=== PATIENT | female | born 2000 | race Caucasian/White ===

== ENCOUNTER 2021-08-25 10:59 | Emergency (ER) | payer OTHER ==
[2021-08-25] MEDS ORDERED: ACETAMINOPHEN TAB 500 MG TAB PO STA (12:43)
[2021-08-25] MEDS ORDERED: SODIUM CHLORIDE 0.9% 1,000 ML IV STA (12:47)
[2021-08-25 13:17] LABS: Basophils % (A) 0 %; Eosinophils % (A) 0 %; HCT 37.2 % (34.0-46.0); HGB 12.7 gm/dL (11.4-16.0); Lymphocytes # (A) 0.6 k/uL (1.0-4.8); Lymphocytes % (A) 3 %; MCH 32.9 pg (25.0-35.0); MCHC 34.1 g/dL (31.0-37.0); MCV 96.4 fL (80.0-100.0); Mean Platelet Volume 6.5; Monocytes # (A) 0.5 k/uL (0-1.0); Monocytes % (A) 2 %; Neutrophils # (A) 19.6 k/uL (1.3-7.7); Neutrophils % (A) 94 %; Platelet Count 291 k/uL (150-450); RBC 3.86 m/uL (3.80-5.40); RDW 11.7 % (11.5-15.5); WBC 20.9 k/uL (3.8-10.6)
[2021-08-25 13:42] LABS: ALT 13 U/L (4-34); AST 21 U/L (14-36); African American GFR (CKD) >90 (>60 ml/min/1.73 sqM); Albumin 4.1 g/dL (3.5-5.0); Alkaline Phosphatase 84 U/L (38-126); Anion Gap 8 mmol/L; Blood Urea Nitrogen 14 mg/dL (7-17); Calcium 9.5 mg/dL (8.4-10.2); Carbon Dioxide 23 mmol/L (22-30); Chloride 102 mmol/L (98-107); Glucose 109 mg/dL (74-99); Non-African American GFR(CKD) >90 (>60 ml/min/1.73 sqM); Potassium 3.8 mmol/L (3.5-5.1); Sodium 133 mmol/L (137-145); Total Bilirubin 0.9 mg/dL (0.2-1.3); Total Protein 7.2 g/dL (6.3-8.2)
[2021-08-25 13:48] LABS: Appearance,Urine Cloudy (Clear); Bacteria,Urine Few /hpf; Bilirubin,Urine Negative (Negative); Blood,Urine Large (Negative); Color,Urine Yellow; Glucose,Urine (UA) Negative (Negative); Ketones,Urine 1+ (Negative); Leukocyte Esterase,Urine Large (Negative); Mucus,Urine Many /hpf; Nitrite,Urine Negative (Negative); PH, Urine 6.5 (5.0-8.0); Protein,Urine 2+ (Negative); RBC,Urine 10 /hpf (0-5); Specific Gravity,Urine 1.034 (1.001-1.035); Squamous Epithelial Cell,Urine 14 /hpf (0-4); WBC,Urine 161 /hpf (0-5)
--- NOTE | 2021-08-25 13:58 | CT ---
EXAMINATION TYPE: CT abdomen pelvis w con DATE OF EXAM: 08/25/2021 HISTORY: Pelvic pain, vaginal bleeding CT DLP: 408.4mGycm Automated Exposure Control for Dose Reduction was Utilized. CONTRAST: CT scan of the abdomen and pelvis is performed without oral but with IV Contrast, patient injected wi th 100 mL of Isovue 300. COMPARISON: None. FINDINGS: LUNG BASES: No significant abnormality is appreciated. LIVER/GB: No significant abnormality is appreciated. PANCREAS: No significant abnormality is seen. SPLEEN: No significant abnormality is seen. ADRENALS: No significant abnormality is seen. KIDNEYS: No significant abnormality is seen. BOWEL: Suboptimal evaluation without enteric contrast and patient having little intra-abdominal fat. Low-lying cecum into the right pelvis is present. No suspicious small or large bowel dilatation. Some fluid in the cecum is noted. UTERUS/ADNEXA: Anteverted uterus. Symmetric normal-size ovaries axial image 65. No free fluid. LYMPH NODES: No greater than 1cm abdominal or pelvic lymph nodes are appreciated. OSSEOUS STRUCTURES: No significant abnormality is seen. OTHER: No significant additional abnormality is seen. IMPRESSION: Source of pelvic pain and vaginal bleeding not identified. Low-lying cecum with intralumi nal fluid could reflect product of diarrhea and/or mild uncomplicated colitis. Correlate clinically. Otherwise unremarkable study.
[2021-08-25] MEDS ORDERED: cefTRIAXone IN SWFI 1,000 MG/10 ML SYRINGE IVP STA (14:05)
--- NOTE | 2021-08-25 14:16 | ED ---
General Adult HPI - General Chief complaint: Abdominal Pain Stated complaint: Female Time Seen by Provider: 08/25/21 12:09 Source: patient Mode of arrival: wheelchair Limitations: no limitations - History of Present Illness Initial comments: 21-year-old female presents to the emergency room for a chief complaint of abdominal pain. Patient has had lower abdominal pain for the pastday or so. Patient states that she does have some dysuria. Denies flank pain. Has had chills on and off. Has not had Motrin or Tylenol today. No nausea vomiting. P atient denies vaginal discharge but does admit to vaginal bleeding. States it is light in nature. Patient does admit to possibility of STDs. denies any abdominal surgeries in the past.Patient has no other complaints at this time including shortness of breath, chest pain, nausea or vomiting, headache, or visual changes. - Related Data Previous Rx's Medication Instructions Recorded Doxycycline [Vibramycin] 100 mg PO BID 14 Days #28 capsule 08/25/21 Sulfamethox-Tmp 800-160Mg [Bactrim 1 tab PO Q12HR #28 tab 08/25/21 DS 800-160 mg] Allergies Allergy/AdvReac Type Severity Reaction Status Date / Time No Known Allergies Allergy Verified 08/25/21 14:26 Review of Systems ROS Statement: Those systems with pertinent positive or pertinent negative responses have been documented in the HPI. ROS Other: All systems not noted in ROS Statement are negative. Past Medical History Past Medical History: No Reported History History of Any Multi-Drug Resistant Organisms: None Reported Past Surgical History: No Surgical Hx Reported Past Psychological History: Anxiety Smoking Status: Current every day smoker Past Alcohol Use History: Occasional Past Drug Use History: Marijuana General Exam Limitations: no limitations General appearance: alert, in no apparent distress Head exam: Present: atraumatic Eye exam: Present: normal appearance, PERRL, EOMI. Absent: scleral icterus, conjunctival injection ENT exam: Present: normal exam, mucous membranes moist Neck exam: Present: normal inspection, full ROM. Absent: tenderness Respiratory exam: Present: normal lung sounds bilaterally. Absent: respiratory distress, wheezes Cardiovascular Exam: Present: regular rate, normal rhythm, normal heart sounds GI/Abdominal exam: Present: soft, tenderness (lower abdominal tenderness), normal bowel sounds. Absent: distended, guarding, rebound External exam: Present: normal external exam. Absent: erythema, swelling, lesions, lacerations, ecchymosis Speculum exam: Present: normal speculum exam, vaginal bleeding (mild, with some discharge). Absent: erythema, vaginal discharge, cervical discharge, foreign body, tissue, laceration By manual exam: Present: cervical motion tenderness, adnexal tenderness, uterine tenderness Course Vital Signs 08/25/21 08/25/21 11:54 14:18 Temperature 101.1 F H 99.3 F Pulse Rate 107 H 104 H Respiratory 20 16 Rate Blood Pressure 92/51 97/61 O2 Sat by Pulse 99 100 Oximetry Medical Decision Making - Medical Decision Making Vitals are stable. Patient does have a fever. Physical exam doesn't reveal a tender abdomen. Pelvic exam reveals mild vaginal bleeding with some discharge. Cervical motion tenderness noted as well as adnexal tenderness. Daniella RODRIGUEZ present as fruit rancher. CBC does show leukocytosis with a left shift. CMP unremarkable. Urinalysis does show significant white blood cells. Trichomoniasis is negative. CT abdomen and pelvis does not explain pelvic pain. at this time I am concerned for PID. Patient was given a gram of Rocephin here in the emergency room and started on doxycycline which she will continue for 14 days. We will also treat her urinary tract infection. She does not have any CVA tenderness. cpatient will follow-up with OB with whom she is established. She will return here for any worsening symptoms.strict return parameters were discussed case was discussed with Dr. Kenny - Lab Data Result diagrams: 08/25/21 12:55 08/25/21 12:55 Lab Results 08/25/21 08/25/21 08/25/21 Range/Units 12:55 12:55 12:55 WBC 20.9 H (3.8-10.6) k/uL RBC 3.86 (3.80-5.40) m/uL Hgb 12.7 (11.4-16.0) gm/dL Hct 37.2 (34.0-46.0) % MCV 96.4 (80.0-100.0) fL MCH 32.9 (25.0-35.0) pg MCHC 34.1 (31.0-37.0) g/dL RDW 11.7 (11.5-15.5) % Plt Count 291 (150-450) k/uL MPV 6.5 Neutrophils % 94 % Lymphocytes % 3 % Monocytes % 2 % Eosinophils % 0 % Basophils % 0 % Neutrophils # 19.6 H (1.3-7.7) k/uL Lymphocytes # 0.6 L (1.0-4.8) k/uL Monocytes # 0.5 (0-1.0) k/uL Eosinophils # 0.0 (0-0.7) k/uL Basophils # 0.0 (0-0.2) k/uL Sodium 133 L (137-145) mmol/L Potassium 3.8 (3.5-5.1) mmol/L Chloride 102 (98-107) mmol/L Carbon Dioxide 23 (22-30) mmol/L Anion Gap 8 mmol/L BUN 14 (7-17) mg/dL Creatinine 0.55 (0.52-1.04) mg/dL Est GFR (CKD-EPI)AfAm >90 (>60 ml/min/1.73 sqM) Est GFR (CKD-EPI)NonAf >90 (>60 ml/min/1.73 sqM) Glucose 109 H (74-99) mg/dL Plasma Lactic Acid Brian (0.7-2.0) mmol/L Calcium 9.5 (8.4-10.2) mg/dL Total Bilirubin 0.9 (0.2-1.3) mg/dL AST 21 (14-36) U/L ALT 13 (4-34) U/L Alkaline Phosphatase 84 (38-126) U/L Total Protein 7.2 (6.3-8.2) g/dL Albumin 4.1 (3.5-5.0) g/dL Urine Color Yellow Urine Appearance Cloudy H (Clear) Urine pH 6.5 (5.0-8.0) Ur Specific [place] 1.034 (1.001-1.035) Urine Protein 2+ H (Negative) Urine Glucose (UA) Negative (Negative) Urine Ketones 1+ H (Negative) Urine Blood Large H (Negative) Urine Nitrite Negative (Negative) Urine Bilirubin Negative (Negative) Urine Urobilinogen 3.0 (<2.0) mg/dL Ur Leukocyte Esterase Large H (Negative) Urine RBC 10 H (0-5) /hpf Urine WBC 161 H (0-5) /hpf Urine WBC Clumps Few H (None) /hpf Ur Squamous Epith Cells 14 H (0-4) /hpf Urine Bacteria Few H (None) /hpf Urine Mucus Many H (None) /hpf Urine HCG, Qual (Not Detectd) Trichomonas Ag (Rapid) (Negative) 08/25/21 08/25/21 08/25/21 Range/Units 12:55 12:55 13:12 WBC (3.8-10.6) k/uL RBC (3.80-5.40) m/uL Hgb (11.4-16.0) gm/dL Hct (34.0-46.0) % MCV (80.0-100.0) fL MCH (25.0-35.0) pg MCHC (31.0-37.0) g/dL RDW (11.5-15.5) % Plt Count (150-450) k/uL MPV Neutrophils % % Lymphocytes % % Monocytes % % Eosinophils % % Basophils % % Neutrophils # (1.3-7.7) k/uL Lymphocytes # (1.0-4.8) k/uL Monocytes # (0-1.0) k/uL Eosinophils # (0-0.7) k/uL Basophils # (0-0.2) k/uL Sodium (137-145) mmol/L Potassium (3.5-5.1) mmol/L Chloride (98-107) mmol/L Carbon Dioxide (22-30) mmol/L Anion Gap mmol/L BUN (7-17) mg/dL Creatinine (0.52-1.04) mg/dL Est GFR (CKD-EPI)AfAm (>60 ml/min/1.73 sqM) Est GFR (CKD-EPI)NonAf (>60 ml/min/1.73 sqM) Glucose (74-99) mg/dL Plasma Lactic Acid Brian 0.9 (0.7-2.0) mmol/L Calcium (8.4-10.2) mg/dL Total Bilirubin (0.2-1.3) mg/dL AST (14-36) U/L ALT (4-34) U/L Alkaline Phosphatase (38-126) U/L Total Protein (6.3-8.2) g/dL Albumin (3.5-5.0) g/dL Urine Color Urine Appearance (Clear) Urine pH (5.0-8.0) Ur Specific [place] (1.001-1.035) Urine Protein (Negative) Urine Glucose (UA) (Negative) Urine Ketones (Negative) Urine Blood (Negative) Urine Nitrite (Negative) Urine Bilirubin (Negative) Urine Urobilinogen (<2.0) mg/dL Ur Leukocyte Esterase (Negative) Urine RBC (0-5) /hpf Urine WBC (0-5) /hpf Urine WBC Clumps (None) /hpf Ur Squamous Epith Cells (0-4) /hpf Urine Bacteria (None) /hpf Urine Mucus (None) /hpf Urine HCG, Qual Not Detected (Not Detectd) Trichomonas Ag (Rapid) Negative (Negative) Disposition Clinical Impression: Abdominal pain, UTI (urinary tract infection) Narrative: possible pelvic inflammatory disease Disposition: HOME SELF-CARE Condition: Good Instructions (If sedation given, give patient instructions): Pelvic Inflammatory Disease (ED), Abdominal Pain (ED) Additional Instructions: Follow-up with primary care and OB this week. Take antibiotic as directed. Take Motrin and Tylenol for pain and fever. Return to the emergency room for any worsening symptoms. Prescriptions: Sulfamethox-Tmp 800-160Mg [Bactrim DS 800-160 mg] 1 tab PO Q12HR #28 tab Doxycycline [Vibramycin] 100 mg PO BID 14 Days #28 capsule Is patient prescribed a controlled substance at d/c from ED?: No Referrals: Richard Yost DO [Primary Care Provider] - 1-2 days Susy Alexander DO [Doctor of Osteopathic Medicine] - 1-2 days Time of Disposition: 14:38
[2021-08-25 14:25] VITALS: BP 97/61; PULSE 104; RESP 16; TEMP 99.3
[2021-08-25] MEDS ORDERED: DOXYCYCLINE 100 MG CAP PO STA (14:33)
[2021-08-25] MEDS ORDERED: ACET/COD 300 MG/30 MG STARTER PACK 6 TAB BTL PO STA (14:39)
== END 2021-08-25 14:58 | disposition home or self-care (01) ==
LOC: EC 10:59
DX: N39.0 Urinary tract infection, site not specified (principal); F17.200 Nicotine dependence, unspecified, uncomplicated
CPT/HCPCS: 36415; 80053; 83605; 85025; 81001; 81025; 87040; 87808; 87491; 87591; 87070; 87086; 74177; 99284; 96374; 96361; J0696; Q9967

== ENCOUNTER 2022-04-07 16:19 | Emergency (ER) | payer OTHER ==
[2022-04-07] MEDS ORDERED: ACETAMINOPHEN TAB 325 MG TAB PO STA (16:45)
[2022-04-07] MEDS ORDERED: SODIUM CHLORIDE 0.9% 1,000 ML IV ONE (17:00)
--- NOTE | 2022-04-07 17:07 | ED ---
General Adult HPI - General Chief complaint: Fever Stated complaint: Tachycardia Time Seen by Provider: 04/07/22 16:50 Source: patient, family, RN notes reviewed, old records reviewed Mode of arrival: ambulatory Limitations: no limitations - History of Present Illness Initial comments: This is a well-appearing 22-year-old female who presents with complaints of fever, low back pain, nausea and vomiting that started Monday. Patient states that she is 13 weeks . Denies any abdominal pain, vaginal bleeding or dysuria. She states that her symptoms started on Monday wtih fever, chills and vomiting. She states that yesterday she had an episode of vomiting. She went to urgent care today for evaluation and they recommended she come to the emergency room after urinalysis revealed 3+ ketones, with no evidence of UTI. She states she did take Tylenol this morning and her low back pain and nausea have resolved at this time. She is a with history of . Denies any other medical history. Denies smoking, alcohol or any drug use. -: days(s) (3) Location: back Radiation: non-radiation Consistency: now resolved Improves with: medication (tylenol) Associated Symptoms: fever/chills, nausea/vomiting Treatments Prior to Arrival: other (urgent care) - Related Data Previous Rx's Medication Instructions Recorded Cephalexin [Keflex] 500 mg PO Q6HR 7 Days #28 cap 04/07/22 Allergies Allergy/AdvReac Type Severity Reaction Status Date / Time No Known Allergies Allergy Verified 04/07/22 17:39 Review of Systems ROS Statement: Those systems with pertinent positive or pertinent negative responses have been documented in the HPI. ROS Other: All systems not noted in ROS Statement are negative. Past Medical History Past Medical History: No Reported History History of Any Multi-Drug Resistant Organisms: None Reported Past Surgical History: No Surgical Hx Reported Past Psychological History: Anxiety Smoking Status: Current every day smoker Past Alcohol Use History: Occasional Past Drug Use History: None Reported General Exam Limitations: no limitations General appearance: alert, in no apparent distress Head exam: Present: atraumatic, normocephalic Eye exam: Present: normal appearance. Absent: scleral icterus, conjunctival injection ENT exam: Present: mucous membranes moist Neck exam: Present: normal inspection. Absent: tenderness, meningismus Respiratory exam: Present: normal lung sounds bilaterally. Absent: respiratory distress, accessory muscle use Cardiovascular Exam: Present: tachycardia, normal heart sounds GI/Abdominal exam: Present: soft. Absent: distended, tenderness Extremities exam: Present: normal capillary refill Back exam: Present: normal inspection, full ROM. Absent: tenderness, CVA tend erness (R), CVA tenderness (L), rash noted Neurological exam: Present: alert, oriented X3 Psychiatric exam: Present: normal affect, normal mood Skin exam: Present: warm, dry, intact, normal color, other (Minimal dry flaky skin upper mid back from recent sunburn). Absent: rash, cyanosis, diaphoretic Course Vital Signs 04/07/22 04/07/22 04/07/22 16:33 18:26 18:45 Temperature 99.6 F 99.4 F Pulse Rate 120 H 113 H 111 H Respiratory 20 18 18 Rate Blood Pressure 105/66 107/84 O2 Sat by Pulse 100 99 96 Oximetry EKG Findings - EKG Results: EKG: sinus rhythm EKG shows: tachycardia (Ventricular rate of 109, GA interval 0.105, QRS 0.72, QTC 0.339) Medical Decision Making - Medical Decision Making Blood work shows no evidence of leukocytosis. Hemoglobin and hematocrit are stable. Covid and influenza swabs are negative. Patient sodium level is 130, likely from dehydration. She was given IV fluid bolus. UA shows cloudy urine with 8 white blood cells and occasional bacteria. Patient has no flank pain on exam. She was given a prescription for Keflex and instructed to follow-up with her primary care doctor next week for reevaluation. She was directed to return to the emergency room with any new or concerning symptoms especially vaginal bleeding or persistent nausea vomiting. She was given a prescription for Zofran for nausea, encouraged to increase her fluid intake. 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 Patient and significant other are agreeable to this plan of care. Case discussed with Dr. Rodriguez. - Lab Data Result diagrams: 04/07/22 17:39 04/07/22 17:39 Lab Results 04/07/22 04/07/22 04/07/22 Range/Units 17:22 17: 17:39 WBC (3.8-10.6) k/uL RBC (3.80-5.40) m/uL Hgb (11.4-16.0) gm/dL Hct (34.0-46.0) % MCV (80.0-100.0) fL MCH (25.0-35.0) pg MCHC (31.0-37.0) g/dL RDW (11.5-15.5) % Plt Count (150-450) k/uL MPV Neutrophils % % Lymphocytes % % Monocytes % % Eosinophils % % Basophils % % Neutrophils # (1.3-7.7) k/uL Lymphocytes # (1.0-4.8) k/uL Monocytes # (0-1.0) k/uL Eosinophils # (0-0.7) k/uL Basophils # (0-0.2) k/uL Sodium (137-145) mmol/L Potassium (3.5-5.1) mmol/L Chloride (98-107) mmol/L Carbon Dioxide (22-30) mmol/L Anion Gap mmol/L BUN (7-17) mg/dL Creatinine (0.52-1.04) mg/dL Est GFR (CKD-EPI)AfAm (>60 ml/min/1.73 sqM) Est GFR (CKD-EPI)NonAf (>60 ml/min/1.73 sqM) Glucose (74-99) mg/dL Calcium (8.4-10.2) mg/dL Total Bilirubin (0.2-1.3) mg/dL AST (14-36) U/L ALT (4-34) U/L Alkaline Phosphatase (38-126) U/L Total Protein (6.3-8.2) g/dL Albumin (3.5-5.0) g/dL Urine Color Light Yellow Urine Appearance Cloudy H (Clear) Urine pH 6.5 (5.0-8.0) Ur Specific [place] 1.006 (1.001-1.035) Urine Protein Trace H (Negative) Urine Glucose (UA) Negative (Negative) Urine Ketones Negative (Negative) Urine Blood Trace H (Negative) Urine Nitrite Negative (Negative) Urine Bilirubin Negative (Negative) Urine Urobilinogen <2.0 (<2.0) mg/dL Ur Leukocyte Esterase Small H (Negative) Urine RBC 2 (0-5) /hpf Urine WBC 8 H (0-5) /hpf Ur Squamous Epith Cells 4 (0-4) /hpf Urine Bacteria Occasional H (None) /hpf Urine Mucus Rare H (None) /hpf Coronavirus (PCR) Not Detected (Not Detectd) Influenza Type A RNA Not Detected (Not Detectd) Influenza Type B (PCR) Not Detected (Not Detectd) 04/07/22 04/07/22 Range/Units 17:39 17:39 WBC 8.7 (3.8-10.6) k/uL RBC 3.70 L (3.80-5.40) m/uL Hgb 11.9 (11.4-16.0) gm/dL Hct 34.2 (34.0-46.0) % MCV 92.5 (80.0-100.0) fL MCH 32.1 (25.0-35.0) pg MCHC 34.7 (31.0-37.0) g/dL RDW 13.1 (11.5-15.5) % Plt Count 171 (150-450) k/uL MPV 6.7 Neutrophils % 84 % Lymphocytes % 9 % Monocytes % 5 % Eosinophils % 0 % Basophils % 0 % Neutrophils # 7.3 (1.3-7.7) k/uL Lymphocytes # 0.8 L (1.0-4.8) k/uL Monocytes # 0.4 (0-1.0) k/uL Eosinophils # 0.0 (0-0.7) k/uL Basophils # 0.0 (0-0.2) k/uL Sodium 130 L (137-145) mmol/L Potassium 4.1 (3.5-5.1) mmol/L Chloride 99 (98-107) mmol/L Carbon Dioxide 21 L (22-30) mmol/L Anion Gap 10 mmol/L BUN 7 (7-17) mg/dL Creatinine 0.49 L (0.52-1.04) mg/dL Est GFR (CKD-EPI)AfAm >90 (>60 ml/min/1.73 sqM) Est GFR (CKD-EPI)NonAf >90 (>60 ml/min/1.73 sqM) Glucose 110 H (74-99) mg/dL Calcium 9.1 (8.4-10.2) mg/dL Total Bilirubin 0.3 (0.2-1.3) mg/dL AST 28 (14-36) U/L ALT 16 (4-34) U/L Alkaline Phosphatase 59 (38-126) U/L Total Protein 6.9 (6.3-8.2) g/dL Albumin 4.1 (3.5-5.0) g/dL Urine Color Urine Appearance (Clear) Urine pH (5.0-8.0) Ur Specific [place] (1.001-1.035) Urine Protein (Negative) Urine Glucose (UA) (Negative) Urine Ketones (Negative) Urine Blood (Negative) Urine Nitrite (Negative) Urine Bilirubin (Negative) Urine Urobilinogen (<2.0) mg/dL Ur Leukocyte Esterase (Negative) Urine RBC (0-5) /hpf Urine WBC (0-5) /hpf Ur Squamous Epith Cells (0-4) /hpf Urine Bacteria (None) /hpf Urine Mucus (None) /hpf Coronavirus (PCR) (Not Detectd) Influenza Type A RNA (Not Detectd) Influenza Type B (PCR) (Not Detectd) Disposition Clinical Impression: UTI (urinary tract infection) during Disposition: HOME SELF-CARE Condition: Good Instructions (If sedation given, give patient instructions): Fever in Adults (ED), Urinary Tract Infection in (ED) Additional Instructions: Take antibiotics as prescribed and follow-up with your primary care doctor next week. Return to the emergency room with any new or concerning symptoms including persistent nausea vomiting or vaginal bleeding. Prescriptions: Cephalexin [Keflex] 500 mg PO Q6HR 7 Days #28 cap Is patient prescribed a controlled substance at d/c from ED?: No Referrals: Richard Yost DO [Primary Care Provider] - 1-2 days Time of Disposition: 18:30
[2022-04-07 17:45] LABS: Basophils % (A) 0 %; Eosinophils % (A) 0 %; HCT 34.2 % (34.0-46.0); HGB 11.9 gm/dL (11.4-16.0); Lymphocytes # (A) 0.8 k/uL (1.0-4.8); Lymphocytes % (A) 9 %; MCH 32.1 pg (25.0-35.0); MCHC 34.7 g/dL (31.0-37.0); MCV 92.5 fL (80.0-100.0); Mean Platelet Volume 6.7; Monocytes # (A) 0.4 k/uL (0-1.0); Monocytes % (A) 5 %; Neutrophils # (A) 7.3 k/uL (1.3-7.7); Neutrophils % (A) 84 %; Platelet Count 171 k/uL (150-450); RDW 13.1 % (11.5-15.5); WBC 8.7 k/uL (3.8-10.6)
[2022-04-07 17:55] LABS: ALT 16 U/L (4-34); AST 28 U/L (14-36); African American GFR (CKD) >90 (>60 ml/min/1.73 sqM); Albumin 4.1 g/dL (3.5-5.0); Alkaline Phosphatase 59 U/L (38-126); Anion Gap 10 mmol/L; Blood Urea Nitrogen 7 mg/dL (7-17); Calcium 9.1 mg/dL (8.4-10.2); Carbon Dioxide 21 mmol/L (22-30); Chloride 99 mmol/L (98-107); Glucose 110 mg/dL (74-99); Non-African American GFR(CKD) >90 (>60 ml/min/1.73 sqM); Potassium 4.1 mmol/L (3.5-5.1); Sodium 130 mmol/L (137-145); Total Bilirubin 0.3 mg/dL (0.2-1.3); Total Protein 6.9 g/dL (6.3-8.2)
[2022-04-07 18:21] LABS: Appearance,Urine Cloudy (Clear); Bacteria,Urine Occasional /hpf; Bilirubin,Urine Negative (Negative); Blood,Urine Trace (Negative); Color,Urine Light Yellow; Glucose,Urine (UA) Negative (Negative); Ketones,Urine Negative (Negative); Leukocyte Esterase,Urine Small (Negative); Mucus,Urine Rare /hpf; Nitrite,Urine Negative (Negative); PH, Urine 6.5 (5.0-8.0); Protein,Urine Trace (Negative); RBC,Urine 2 /hpf (0-5); Specific Gravity,Urine 1.006 (1.001-1.035); Squamous Epithelial Cell,Urine 4 /hpf (0-4); Urobilinogen,Urine <2.0 mg/dL (<2.0); WBC,Urine 8 /hpf (0-5)
[2022-04-07 18:26] VITALS: RESP 18
[2022-04-07] MEDS ORDERED: ONDANSETRON 4 MG ODT STARTER PACK 2 TAB BTL PO STA (18:32)
[2022-04-07] MEDS ORDERED: CEPHALEXIN 500 MG CAP PO STA (18:32)
[2022-04-07 18:46] VITALS: BP 107/84; PULSE 111; TEMP 99.4
== END 2022-04-07 18:46 | disposition home or self-care (01) ==
LOC: EC 16:19
DX: O23.41 Unspecified infection of urinary tract in pregnancy, first trimester (principal); N39.0 Urinary tract infection, site not specified; Z20.822 Contact with and (suspected) exposure to COVID-19; F17.200 Nicotine dependence, unspecified, uncomplicated; Z3A.13 13 weeks gestation of pregnancy
CPT/HCPCS: 36415; 80053; 85025; 81001; 87502; 87635; 99285; 96360; S0119

== ENCOUNTER 2022-09-28 02:07 | Inpatient (IN) | payer OTHER ==
[2022-09-20 11:59] VITALS: BMI 25.4
[2022-09-28] MEDS ORDERED: CITRIC ACID-SODIUM CITRATE 15 ML CUP PO ONE (02:18)
[2022-09-28] MEDS: LACTATED RINGERS 1,000 ML IV SCH ×6 (02:35→23:16)
[2022-09-28] MEDS ORDERED: ACETAMINOPHEN TAB 325 MG TAB PO STA (02:51)
[2022-09-28 03:10] LABS: Basophils % (A) 0 %; Eosinophils % (A) 0 %; HGB 9.7 gm/dL (11.4-16.0); Hypochromasia Slight; Lymphocytes # (A) 0.6 k/uL (1.0-4.8); Lymphocytes % (A) 6 %; MCHC 33.6 g/dL (31.0-37.0); MCV 89.4 fL (80.0-100.0); Mean Platelet Volume 8.1; Monocytes # (A) 0.7 k/uL (0-1.0); Monocytes % (A) 8 %; Neutrophils # (A) 7.7 k/uL (1.3-7.7); Neutrophils % (A) 83 %; Platelet Count 177 k/uL (150-450); RBC 3.24 m/uL (3.80-5.40); RDW 13.1 % (11.5-15.5); WBC 9.3 k/uL (3.8-10.6)
[2022-09-28] MEDS ORDERED: OXYTOCIN 30 UNITS/500 ML NS BAG IV ONE (08:08)
[2022-09-28] MEDS ORDERED: MORPHINE SULFATE (PF) 0.3 MG/0.3 ML SYR ONE (08:08)
[2022-09-28] MEDS ORDERED: METHYLERGONOVINE 0.2 MG/ML 1 ML AMP ONE (08:08)
[2022-09-28] MEDS ORDERED: PHENYLEPHRINE-0.9% NACL SYG 1,000 MCG/10 ML SYRINGE ONE (08:08)
[2022-09-28] MEDS ORDERED: ePHEDrine 50 MG/ML 1 ML VIAL ONE (08:08)
[2022-09-28] MEDS ORDERED: NALBUPHINE 10 MG/ML (1 ML AMP) ONE (08:08)
[2022-09-28] MEDS ORDERED: ONDANSETRON 4 MG/2 ML VIAL ONE (08:08)
[2022-09-28] MEDS ORDERED: ZOLPIDEM 5 MG TAB PO PRN (09:08)
[2022-09-28] MEDS ORDERED: ONDANSETRON 4 MG/2 ML VIAL IVP PRN (09:08)
[2022-09-28] MEDS ORDERED: diphenhydrAMINE 25 MG CAP PO PRN (09:08)
[2022-09-28] MEDS ORDERED: diphenhydrAMINE 50 MG CAP PO PRN (09:08)
[2022-09-28] MEDS ORDERED: METOCLOPRAMIDE 5 MG/ML 2 ML VIAL IVP PRN (09:08)
[2022-09-28] MEDS ORDERED: SIMETHICONE 80 MG CHEWABLE PO PRN (09:08)
[2022-09-28] MEDS ORDERED: NALOXONE 0.4 MG/ML 1 ML VIAL IV PRN (09:08)
[2022-09-28] MEDS ORDERED: diphenhydrAMINE 50 MG/ML 1 ML VIAL IVP PRN ×2 (09:08)
--- NOTE | 2022-09-28 09:14 | P.HPOB ---
History of Present Illness H&P Date: 09/28/22 Chief Complaint: 37-6/7 weeks, IUGR, placenta previa the patient is a 22-year-old 2 para 0010 admitted at 37-6/7 weeks as established by last menstrual period and confirmed by 11 week ultrasound. She has been followed throughout the for growth under the 10th percentile which was primarily thought to be secondary to her small habitus and that the was actually constitutionally small. Nevertheless, she was treated as intrauterine growth restriction and testing was reassuring after 32 weeks. She additionally was found to have a posterior placenta previa which did not resolve throughout the course of the . As result she required section. On labor and delivery, all signs reassuring with a category 1 heart rate tracing. Group B strep status is negative. Obstetrical history: 2 para 0010 with one early miscarriage. Current statistics are listed in history of present illness. EDC of 10/12/2022 was established by last menstrual period and confirmed bilateral week ultrasound. Laboratory workup demonstrates a blood type of O+ with a negative antibody screen. Rubella status is immune. The remainder of the laboratory workup was within normal limits. One hour Glucola was normal and group B strep status is negative. Gynecologic history: Unremarkable with no history of any infections to include STDs. Review of Systems review of systems is confined to history of present illness. Past Medical History Past Medical History: No Reported History History of Any Multi-Drug Resistant Organisms: None Reported Past Surgical History: No Surgical Hx Reported Additional Past Surgical History / Comment(s): . Past Anesthesia/Blood Transfusion Reactions: Postoperative Nausea & Vomiting (PONV) Past Psychological History: Anxiety Smoking Status: Vaper Past Alcohol Use History: Occasional Additional Past Alcohol Use History / Comment(s): Quit vaping 8 months ago. No alcohol since . Past Drug Use History: None Reported - Past Family History Mother Family Medical History: Cancer Medications and Allergies Allergies Allergy/AdvReac Type Severity Reaction Status Date / Time No Known Allergies Allergy Verified 09/28/22 02:18 Exam Vital Signs Temp Pulse Resp BP 09/28/22 02:11 98.7 F 116 H 16 122/70 Intake and Output 09/27/22 09/28/22 09/28/22 22:59 06:59 14:59 Other: Weight 58.967 kg in general, this is a well-developed, well-nourished white female in no acute d istress. Her heart has a regular rhythm and rate without murmur. Her lungs are clear to auscultation bilaterally in all stoll. Her abdomen is gravid, nondistended, has normal active bowel sounds, is soft, nontender, and without any palpable masses aside from uterine fundus. Her extremities are without any cyanosis, clubbing, or edema and are nontender to palpation bilaterally. Digital cervical examination is deferred. Results Result Diagrams: 09/28/22 02:30 Abnormal Lab Results - Last 24 Hours (Table) 09/28/22 Range/Units 02:30 RBC 3.24 L (3.80-5.40) m/uL Hgb 9.7 L (11.4-16.0) gm/dL Hct 29.0 L (34.0-46.0) % Lymphocytes # 0.6 L (1.0-4.8) k/uL Assessment and Plan (1) Term Current Visit: Yes Status: Acute Code(s): Z34.90 - ENCNTR FOR SUPRVSN OF NORMAL , UNSP, UNSP TRIMESTER SNOMED Code(s): 74185702 (2) IUGR (intrauterine growth restriction) Current Visit: Yes Status: Acute Code(s): GSK4356 - SNOMED Code(s): 64410910 (3) Placenta previa Current Visit: Yes Status: Acute Code(s): O44.00 - COMPLETE PLACENTA PREVIA NOS OR WITHOUT HEMOR, UNSP TRI SNOMED Code(s): 11284503 Plan: the patient is admitted for primary low-transverse section for the diagnoses as outlined above. The risks and complications the procedure been thoroughly discussed and she has understood and agreed to proceed.
[2022-09-28] MEDS ORDERED: OXYTOCIN 30 UNITS/500 ML NS 30 UNIT in SALINE 1 500ML.BAG IV SCH (09:15)
--- NOTE | 2022-09-28 09:21 | P.OP ---
Date of Procedure: 09/28/22 Preoperative Diagnosis: #1. 37-6/7 weeks intrauterine #2. Intrauterine growth restriction #3. Placenta previa Postoperative Diagnosis: same Procedure(s) Performed: #1. Primary low-transverse section Anesthesia: spinal Surgeon: Brayan Abel Lock Tender Chief Operator #1: Oksana Maria Estimated Blood Loss (ml): 700 IV fluids (ml): 700 Urine output (ml): 200 Pathology: none sent Condition: stable Disposition: floor Operative Findings: the patient was taken the operating room where she was delivered of a viable 5 lbs. 13 oz. baby girl with Apgars of 9 at 1 minute and 9 at 5 minutes and the vertex presentation. The placenta was posterior and noted to be in a position of previa. It was delivered manually, intact, and grossly normal with a grossly normal three-vessel cord. The uterus, tubes, and ovaries were entirely normal to inspection. We did encounter some bogginess in the lower uterine segment which was managed with medications and uterine massage. Following the procedure, performed a digital cervical examination and found the surgery 2 cm dilated and was able to evacuate some clot from the lower uterine segment. Bleeding was relatively minimal and the uterus was just below the umbilicus. Description of Procedure: the patient was prepped and draped in usual fashion after spinal anesthesia was administered by the anesthesiologist. A Pfannenstiel incision was made and extended into the abdominal cavity without difficulty. The bladder peritoneum was significant a distal to the intended site of incision was left intact. A 2 cm incision was made in the transverse plane of the lower uterine segment to enter the uterus at which time clear fluid was noted. The incision was extended in both directions using the bandage scissors. The head was presenting carpal was significantly floating in the uterus. The head was directed down into the incision where it was delivered up and through the incision. The nose and mouth were thoroughly suctioned and the remainder of the was delivered onto the field. The cord was doubly clamped, cut, and the passed resuscitative measures with weight and Apgars as noted above. cord blood was collected per protocol. The placenta was delivered manually and intact as noted above. The uterus was exteriorized and the interior cavity the uterus swept of any remaining placental or membranous fragments. The margins of the uterine incision were grasped with Doshi clamps and the incision closed in 2 layers. The first layer was a running locking stitch of 0 chromic catgut from margin to margin followed by a running imbricating stitch of 0 chromic catgut from margin to margin. Hemostasis appeared to be excellent. The posterior cul-de-sac was suctioned with a guard followed by laparotomy sponge. The uterine and ovarian findings were normal as noted above. The uterus was replaced within the abdominal cavity and the gutters swept of any remaining blood, fluid, or clot. Examination of the incision demonstrated some oozing at the left angle of the incision which was made hemostatic with a icoevg-ot-tihkt stitch of 0 chromic catgut. Following this, hemostasis was excellent. The parietal peritoneum was loosely reapproximated in the layer of muscles examined and found to be hemostatic. The fascia was closed with a single running stitch of 0 Vicryl proceeding from margin to margin. The subcutaneous tissues were irrigated, made hemostatic with the Bovie, and reapproximated with a running stitch of 30 plain catgut. The skin was reapproximated with a running subcuticular stitch of 4-0 Vicryl followed by half-inch Steri-Strips placed with Mastisol. Following the procedure, I did perform a digital cervical examination as there was some thought that the lower uterine segment was harboring clots. I was able to evacuate a fair amount of clot at that time through her cervix is dilated approximately 2 cm. Following this, bleeding was minimal. All sponge, instrument, needle counts were correct. Estimated blood loss for the case was approximate 700 mL. There were no complications. The patient tolerated the procedure well and proceeded to the recovery room in stable condition. Both mother and infant are resting comfortably in recovery.
[2022-09-28] MEDS: ACETAMINOPHEN TAB 500 MG TAB PO SCH ×2 (12:43→19:03)
[2022-09-28] MEDS: KETOROLAC 15 MG/ML 1 ML VIAL IVP PRN ×2 (16:16→22:34)
[2022-09-28] MEDS: IBUPROFEN 600 MG TAB PO SCH ×2 (18:08→22:38)
[2022-09-28] MEDS: SENNOSIDES-DOCUSATE SODIUM 1 EACH TAB PO SCH (20:18)
[2022-09-29] MEDS: ACETAMINOPHEN TAB 500 MG TAB PO SCH ×5 (01:09→21:23)
[2022-09-29] MEDS: KETOROLAC 15 MG/ML 1 ML VIAL IVP PRN ×2 (05:17→10:45)
[2022-09-29 05:40] LABS: Basophils % (A) 0 %; Eosinophils % (A) 0 %; HCT 20.4 % (34.0-46.0); Hypochromasia Moderate; Lymphocytes # (A) 1.8 k/uL (1.0-4.8); Lymphocytes % (A) 22 %; MCH 31.3 pg (25.0-35.0); MCHC 33.9 g/dL (31.0-37.0); MCV 92.5 fL (80.0-100.0); Mean Platelet Volume 8.3; Monocytes # (A) 0.4 k/uL (0-1.0); Monocytes % (A) 5 %; Neutrophils # (A) 5.6 k/uL (1.3-7.7); Neutrophils % (A) 69 %; Platelet Count 195 k/uL (150-450); Poikilocytosis Slight; RBC 2.21 m/uL (3.80-5.40); RDW 13.2 % (11.5-15.5); WBC 8.1 k/uL (3.8-10.6)
[2022-09-29 05:51] LABS: HGB 6.9 gm/dL (11.4-16.0)
--- NOTE | 2022-09-29 07:54 | P.PN ---
Progress Note - Text Progress Note Date: 09/29/22 (700) Anesthesia Postop day 1 Subjective: Status Post section with Duramorph. Patient seen and examined. Doing well without complaint. VAS 1 out of 10. No nausea vomiting or pruritus. Afebrile. Gross lower extremity strength intact. Without apparent anesthetic complications. Objective: Vital signs reviewed Heart: Regular Rate Lungs: Good chest excursion Abdomen: Appears nondistended Assessment: Status post with Duramorph postop day 1 Plan: Continue current care with your medical management. Anticipated and the Duramorph around 9 PM tonight, you may see increased pain needs around this time.
--- NOTE | 2022-09-29 08:40 | P.PNOBGPC ---
Subjective - Subjective Patient reports: Reports appetite normal, Reports voiding normally, Reports pain well controlled, Reports ambulating normally : doing well Objective - Vital Signs Latest vital signs: Vital Signs Temp Pulse Resp BP Pulse Ox 09/29/22 03:48 98.3 F 74 18 104/73 09/28/22 23:14 98.3 F 78 17 110/67 100 09/28/22 20:00 98.0 F 83 17 106/65 99 09/28/22 16:00 96.9 F L 81 18 102/62 99 09/28/22 12:00 98.7 F 86 18 109/66 100 09/28/22 11:07 97.8 F 79 18 108/64 99 09/28/22 10:40 74 18 104/62 09/28/22 10:10 78 16 106/59 98 09/28/22 09:55 76 16 103/55 99 09/28/22 09:40 83 16 104/59 09/28/22 09:25 91 18 105/53 09/28/22 09:10 97.0 F L 87 16 103/52 100 Intake and Output 09/28/22 09/29/22 09/29/22 22:59 06:59 14:59 Intake Total 1000 Output Total 400 950 Balance -400 50 Intake: IV 1000 Output: Urine 200 950 Straight 200 Uretheral (Sharma) 200 Emesis 200 Other: Voiding Method Indwelling Catheter # Voids 1 - Exam Extremities: Present: normal Abdomen: Present: normal appearance, soft. Absent: distention, tenderness Incision: Present: normal, dry, intact Uterus: Present: normal, firm (the uterine fundus as tonic and appropriate tender below the umbilicus.) - Labs Labs: Abnormal Lab Results - Last 24 Hours (Table) 09/29/22 Range/Units 04:59 RBC 2.21 L (3.80-5.40) m/uL Hgb 6.9 L* D (11.4-16.0) gm/dL Hct 20.4 L (34.0-46.0) % Assessment and Plan (1) Term Current Visit: Yes Status: Acute Code(s): Z34.90 - ENCNTR FOR SUPRVSN OF NORMAL , UNSP, UNSP TRIMESTER SNOMED Code(s): 79841892 (2) IUGR (intrauterine growth restriction) Current Visit: Yes Status: Acute Code(s): STM7450 - SNOMED Code(s): 44653898 (3) Placenta previa Current Visit: Yes Status: Acute Code(s): O44.00 - COMPLETE PLACENTA PREVIA NOS OR WITHOUT HEMOR, UNSP TRI SNOMED Code(s): 80287500 (4) Status post section Current Visit: Yes Status: Acute Code(s): Z98.891 - HISTORY OF UTERINE SCAR FROM PREVIOUS SURGERY SNOMED Code(s): 821106048 Plan: continue routine and postoperative care. The patient's hemoglobin is quite low today though she is asymptomatic. As a result, we will follow her symptoms rather than consider transfusion at this time. I would anticipate possible discharge home tomorrow pending no complications and pending the disposition of the who is currently in the nursery secondary to some initial difficulties with breathing properly.
[2022-09-29] MEDS: SENNOSIDES-DOCUSATE SODIUM 1 EACH TAB PO SCH ×2 (08:42→21:23)
[2022-09-29] MEDS: IBUPROFEN 600 MG TAB PO SCH ×4 (17:50→23:59)
[2022-09-29] MEDS: LACTATED RINGERS 1,000 ML IV SCH ×2 (20:38→20:39)
[2022-09-30] MEDS: ACETAMINOPHEN TAB 500 MG TAB PO SCH ×3 (04:24→20:59)
--- NOTE | 2022-09-30 11:15 | P.PNOBGPC ---
Subjective - Subjective Patient reports: Reports appetite normal, Reports voiding normally, Reports pain well controlled, Reports ambulating normally : doing well, in NICU (having issues with feeding and digestion.) Objective - Vital Signs Latest vital signs: Vital Signs Temp Pulse Resp BP Pulse Ox 09/30/22 00:00 98.7 F 84 16 120/78 99 09/29/22 16:00 97.7 F 79 17 124/80 - Exam Extremities: Present: normal Abdomen: Present: normal appearance, soft. Absent: distention, tenderness Incision: Present: normal, dry, intact Uterus: Present: normal, firm (the uterine fundus as tonic and minimally tender below the umbilicus.) Assessment and Plan (1) Term Current Visit: Yes Status: Acute Code(s): Z34.90 - ENCNTR FOR SUPRVSN OF NORMAL , UNSP, UNSP TRIMESTER SNOMED Code(s): 44605699 (2) IUGR (intrauterine growth restriction) Current Visit: Yes Status: Acute Code(s): CRR3517 - SNOMED Code(s): 85803100 (3) Placenta previa Current Visit: Yes Status: Acute Code(s): O44.00 - COMPLETE PLACENTA PREVIA NOS OR WITHOUT HEMOR, UNSP TRI SNOMED Code(s): 77008916 (4) Status post section Current Visit: Yes Status: Acute Code(s): Z98.891 - HISTORY OF UTERINE SCAR FROM PREVIOUS SURGERY SNOMED Code(s): 944428745 Plan: as the infant remains in the special care nursery, the patient will remain in the hospital until the babies discharge or postoperative day #4, whichever comes first. She will continue with routine and postoperative care.
[2022-09-30] MEDS: IBUPROFEN 600 MG TAB PO SCH ×2 (15:17→21:00)
[2022-09-30] MEDS: SENNOSIDES-DOCUSATE SODIUM 1 EACH TAB PO SCH ×2 (20:59→21:00)
[2022-10-01] MEDS: IBUPROFEN 600 MG TAB PO SCH ×3 (00:16→12:00)
[2022-10-01] MEDS: ACETAMINOPHEN TAB 500 MG TAB PO SCH ×2 (06:50→11:59)
[2022-10-01 09:58] VITALS: BP 121/78; PULSE 91; RESP 16; TEMP 98.2
[2022-10-01] MEDS: SENNOSIDES-DOCUSATE SODIUM 1 EACH TAB PO SCH (10:21)
--- NOTE | 2022-10-01 11:36 | P.DS ---
Providers Date of admission: 09/28/22 02:07 Expected date of discharge: 10/01/22 Attending physician: Brayan Abel Primary care physician: Stated None - Discharge Diagnosis(es) (1) Term Current Visit: Yes Status: Acute (2) IUGR (intrauterine growth restriction) Current Visit: Yes Status: Acute (3) Placenta previa Current Visit: Yes Status: Acute (4) Status post section Current Visit: Yes Status: Acute Hospital Course: the patient is a 22-year-old 2 para 0010 admitted at 37-6/7 weeks by good dating parameters. She is admitted for primary low-transverse section secondary to a diagnosis of placenta previa with intrauterine growth restriction. She had had reassuring testing weekly since 32 weeks with stable growth but always under the 10th percentile. Her was otherwise uncomplicated and group B strep status is negative. On labor and delivery, all signs reassuring with a category 1 heart rate tracing. She was taken the operating room where she underwent primary low-transverse section and uncomplicated fashion though she did have some mild uterine atony concerns and a moderate amount of blood loss as result. she was delivered of a viable 5 lbs. 13 oz. baby girl with Apgars of 9 at 1 minute and 9 at 5 minutes. Her and postoperative course was unremarkable with vital signs being stable and her temperature was afebrile throughout. She was deemed stable for discharge on postoperative and day #3 and was discharged home to follow-up in the office in 2 weeks' time for an incision check and 6 weeks routinely. Discharge instructions included calling for any significantly increased bleeding or foul-smelling lochia, significantly increased fever abdominal pain, perineal complaints, breast complaints, incisional complaints, or anything else that concerned her. She is additionally instructed to have nothing in the vagina for at least 6 weeks time to include intercourse and to abstain from any heavy lifting over the same period of time. She is less instructed to do no driving until off of all pain medications or 2 weeks' time, whichever came first. She understood her instructions and agrees follow up as noted above. Discharge medications included coyf-qtc-dlowfur analgesic pain medications as well as a prescription for Tylenol No. 3, 1-2 by mouth every 6 hours when necessary pain, #20 dispensed with no refills. She is additionally instructed to take iron sulfate 325 mg 1-2 times daily for the next month as she is fairly anemic following surgery but otherwise asymptomatic. Maternal blood type is O+ and rubella status is immune. Discharge hemoglobin and hematocrit were 6.9 and 20.4 respectively having fallen from 9.7 and 29.0 preoperatively. Procedures: #1. Primary low-transverse section Patient Condition at Discharge: Stable Plan - Discharge Summary Discharge Rx Participant: No Follow up Appointment(s)/Referral(s): Brayan Abel MD [STAFF PHYSICIAN] - 2 Weeks Discharge Disposition: HOME SELF-CARE
== END 2022-10-01 12:20 | disposition home or self-care (01) | DRG 787 ==
LOC: 4FBP 02:07
PROVIDERS: ADMIT Obstetrics & Gynecology; ATTEND Obstetrics & Gynecology
PROC: 10D00Z1 Extraction of Products of Conception, Low, Open Approach (ICD-10-PCS; principal; 2022-09-28 08:00)
DX: O44.03 Complete placenta previa NOS or without hemorrhage, third trimester (principal); D62 Acute posthemorrhagic anemia; O36.5930 Maternal care for other known or suspected poor fetal growth, third trimester, not applicable or unspecified; O62.2 Other uterine inertia; Z3A.37 37 weeks gestation of pregnancy; Z37.0 Single live birth; Z87.59 Personal history of other complications of pregnancy, childbirth and the puerperium; Z87.891 Personal history of nicotine dependence
CPT/HCPCS: 85025; 86850; 86900; 86901

== ENCOUNTER 2024-02-22 10:03 | Inpatient (IN) | payer BC, OTHER ==
[2024-02-22] MEDS ORDERED: miSOPROStoL 200 MCG TAB PO PRN (10:40)
[2024-02-22] MEDS ORDERED: CARBOPROST TROMETHAMINE 250 MCG/ML 1 ML AMP IM PRN (10:40)
[2024-02-22] MEDS ORDERED: TRANEXAMIC 1,000 MG/100ML-NACL 1,000 MG in EMPTY BAG 1 BAG IV PRN (10:40)
[2024-02-22] MEDS ORDERED: OXYTOCIN 10 UNIT/ML 1 ML VIAL IM PRN (10:40)
[2024-02-22] MEDS: LACTATED RINGERS 1,000 ML IV ONE (10:57)
[2024-02-22 10:58] LABS: Basophils % (A) 0 %; Eosinophils % (A) 0 %; HCT 33.2 % (34.0-46.0); HGB 10.6 gm/dL (11.4-16.0); Hypochromasia Slight; Lymphocytes # (A) 2.1 k/uL (1.0-4.8); Lymphocytes % (A) 19 %; MCH 26.1 pg (25.0-35.0); MCV 81.6 fL (80.0-100.0); Monocytes # (A) 0.5 k/uL (0-1.0); Monocytes % (A) 5 %; Neutrophils # (A) 8.1 k/uL (1.3-7.7); Neutrophils % (A) 73 %; Platelet Count 224 k/uL (150-450); Poikilocytosis Slight; RBC 4.07 m/uL (3.80-5.40); RDW 15.2 % (11.5-15.5); WBC 11.1 k/uL (3.8-10.6)
[2024-02-22] MEDS: CITRIC ACID-SODIUM CITRATE 15 ML CUP PO ONE (11:18)
[2024-02-22] MEDS ORDERED: GLYCOPYRROLATE 0.2 MG/ML 2 ML VIAL ONE (12:04)
[2024-02-22] MEDS ORDERED: NALBUPHINE 10 MG/ML (10 ML MDV) ONE (12:04)
[2024-02-22] MEDS ORDERED: diphenhydrAMINE 50 MG/ML 1 ML VIAL ONE (12:04)
[2024-02-22] MEDS ORDERED: ONDANSETRON 4 MG/2 ML VIAL ONE (12:04)
[2024-02-22] MEDS ORDERED: OXYTOCIN 30 UNITS/500 ML NS BAG IV ONE (12:04)
[2024-02-22] MEDS ORDERED: PHENYLEPHRINE-0.9% NACL SYG 1,000 MCG/10 ML SYRINGE ONE (12:04)
[2024-02-22] MEDS ORDERED: MORPHINE SULFATE (PF) 0.3 MG/0.3 ML SYR ONE (12:04)
[2024-02-22] MEDS ORDERED: ZOLPIDEM 5 MG TAB PO PRN (12:50)
[2024-02-22] MEDS ORDERED: diphenhydrAMINE 50 MG/ML 1 ML VIAL IVP PRN ×2 (12:50)
[2024-02-22] MEDS ORDERED: diphenhydrAMINE 50 MG CAP PO PRN (12:50)
[2024-02-22] MEDS ORDERED: ONDANSETRON 4 MG/2 ML VIAL IVP PRN (12:50)
[2024-02-22] MEDS ORDERED: SIMETHICONE 80 MG CHEWABLE PO PRN (12:50)
[2024-02-22] MEDS ORDERED: diphenhydrAMINE 25 MG CAP PO PRN (12:50)
[2024-02-22] MEDS ORDERED: NALOXONE 0.4 MG/ML 1 ML VIAL IV PRN (12:50)
--- NOTE | 2024-02-22 12:55 | P.HPOB ---
History of Present Illness H&P Date: 02/22/24 Chief Complaint: IUP at 37 1/7 weeks, IUGR, history of x 1 This is a 23-year-old -0-1-1 at 37-1/7 weeks that presents to labor and delivery for repeat section. Patient had a prior for marginal placenta previa. Patient was diagnosed with IUGR during this . Patient had an ultrasound this week revealing estimated weight of less than the 1st percentile. testing was reassuring patient was counseled on findings and recommendations for delivery at 37 weeks given diagnosis of IUGR. Patient notes good movement denies contractions vaginal bleeding or loss of fluid. On blood work this patient is a blood type of O+, rubella status immune, hepatitis B surface engine negative, HIV negative, RPR is nonreactive, grew beta strep culture is negative. Review of Systems Constitutional: Denies chills, Denies fatigue, Denies fever Ears, nose, mouth and throat: Denies headache Cardiovascular: Denies leg edema Respiratory: Denies dyspnea Gastrointestinal: Denies nausea, Denies vomiting Genitourinary: Reports Past Medical History Past Medical History: No Reported History History of Any Multi-Drug Resistant Organisms: None Reported Past Surgical History: No Surgical Hx Reported Additional Past Surgical History / Comment(s): . Past Anesthesia/Blood Transfusion Reactions: Postoperative Nausea & Vomiting (PONV) Past Psychological History: Anxiety Smoking Status: Current every day smoker Past Alcohol Use History: Occasional Additional Past Alcohol Use History / Comment(s): Quit vaping 8 months ago. No alcohol since . Past Drug Use History: None Reported - Past Family History Mother Family Medical History: Cancer Medications and Allergies Home Medications Medication Instructions Recorded Confirmed Type Vit No.179/Iron/Folic 1 tab PO DAILY 02/22/24 02/22/24 History [ Tablet] Allergies Allergy/AdvReac Type Severity Reaction Status Date / Time No Known Allergies Allergy Verified 02/22/24 10:38 Exam Osteopathic Statement: *. No significant issues noted on an osteopathic structural exam other than those noted in the History and Physical/Consult. Vital Signs Temp Pulse Resp BP 02/22/24 10:38 97.2 F L 89 16 142/87 Intake and Output 02/21/24 02/22/24 02/22/24 22:59 06:59 14:59 Other: Weight 55.338 kg Targeted physical exam is performed this date General is well-nourished well- developed female in no acute distress, breathing is nonlabored, heart has a regular rate and rhythm, abdomen is gravid and small for gestational age, heart tones are noted to be category 1 and she is maria luisa irregularly. Slightly elevated blood pressures 140s over 80s is noted x 2. Cervical exam is deferred Results Result Diagrams: 02/22/24 10:35 Abnormal Lab Results - Last 24 Hours (Table) 02/22/24 Range/Units 10:35 WBC 11.1 H (3.8-10.6) k/uL Hgb 10.6 L (11.4-16.0) gm/dL Hct 33.2 L (34.0-46.0) % Neutrophils # 8.1 H (1.3-7.7) k/uL Assessment and Plan (1) 37 weeks gestation of Current Visit: Yes Status: Acute Code(s): Z3A.37 - 37 WEEKS GESTATION OF SNOMED Code(s): 75151820 (2) History of section Current Visit: Yes Status: Acute Code(s): Z98.891 - HISTORY OF UTERINE SCAR FROM PREVIOUS SURGERY SNOMED Code(s): 370254306 (3) IUGR (intrauterine growth restriction) Current Visit: No Status: Acute Code(s): FHX7307 - SNOMED Code(s): 45494004 Plan: 23-year-old G3, P1 at 37-1/7 weeks that presented to labor and delivery for scheduled repeat section. Patient has had a complicated by intrauterine growth restriction. Patient was counseled on recommendations for delivery given diagnosis of IUGR. Patient elected to proceed with delivery. Risks are reviewed including but not limited to infection, bleeding, damage to bladder, bowel, injury. All questions were answered and patient states understanding.
--- NOTE | 2024-02-22 12:59 | P.OP ---
Date of Procedure: 02/22/24 Preoperative Diagnosis: IUP at 37-1/7 weeks, history of x 1, IUGR Postoperative Diagnosis: Same, thin lower uterine segment Procedure(s) Performed: Repeat section Anesthesia: spinal Surgeon: Oksana Maria Jewel Bearing Grinder #1: Kelly Quintana Estimated Blood Loss (ml): 1,277 IV fluids (ml): 800 Urine output (ml): 200 Pathology: other (Sent to) Condition: stable Disposition: observation Indications for Procedure: Intrauterine growth restriction Operative Findings: Very thin lower uterine segment, amniotic fluid visualized through the uterine segment Viable female infant delivered at 1223, weight of 4 pounds 9 ounces Description of Procedure: The patient was prepped and draped in the usual fashion after spinal anesthesia was administered the anesthesia department. A Pfannenstiel incision was made and extended of the abdominal cavity without difficulty. The bladder peritoneum was elevated and incised and reflected distally. A 2 cm incision was made in the transverse plane of the lower uterine segment to enter the uterus at which time clear fluid was noted. The incision was extended in both directions. The lower uterine segment was noted to be very thin in appearance. The head was encountered within the field and delivered up and through the incision where the nose and mouth were thoroughly suctioned. Remainder of the infant was delivered onto the surgical field where the cord was doubly clamped, cut, and the infant was passed for resuscitative measures with weight and Apgars as noted above. The placenta was delivered manually, intact, and was grossly normal with a grossly normal three-vessel cord. The uterus was exteriorized and the interior cavity of the uterus swept of any remaining placental and membranous fragments with a laparotomy sponge. The margins of the incision were grasped with Allis clamps and the incision closed in 2 layers. First layer was a running locking layer of 0 Vicryl from margin to margin followed by a second layer of imbricating 0 Vicryl from margin to margin. Bleeding was noted on the right-hand side of the uterine incision therefore a vediau-uq-vapjw was used to obtain hemostasis, any small points of bleeding were then made hemostatic with the Bovie. Once hemostasis was achieved, the posterior cul-de-sac was suctioned with a guard and the uterine and ovarian findings are as noted above. The uterus was replaced within the abdominal cavity and the gutters swept of any remaining blood fluid or clot. The incision was again reexamined and hemostasis was noted to be excellent. Any small point of bleeding were made hemostatic with the Bovie. Once hemostasis was achieved the parietal peritoneum was loosely reapproximated. The layer of muscles were examined and made hemostatic with the Bovie. Attention was then turned to the fascia which was closed with a running stitches of 0 Vicryl proceeding from 1 lateral edge to the other. The subcutaneous tissues were irrigated, made hemostatic with the Bovie. The skin was reapproximated with regular surgical pete. Estimated blood loss for the case was approximately 1277 mL. All sponge instrument and needle counts are correct. There were no complications. The patient tolerated the procedure well and proceeded to the recovery room in stable condition. Both mother and are resting comfortably in recovery.
[2024-02-22] MEDS: METHYLERGONOVINE 0.2 MG/ML 1 ML AMP IM PRN (13:27)
[2024-02-22] MEDS: LACTATED RINGERS 1,000 ML IV SCH ×2 (14:32→14:33)
[2024-02-22] MEDS: ACETAMINOPHEN IV (For NPO) 1,000 MG in EMPTY BAG 1 BAG IVPB SCH (17:17)
[2024-02-22] MEDS: OXYTOCIN 30 UNITS/500 ML NS 30 UNIT in SALINE 1 500ML.BAG IV SCH (17:29)
[2024-02-22] MEDS: ACETAMINOPHEN TAB 500 MG TAB PO SCH (17:30)
[2024-02-22] MEDS: IBUPROFEN 600 MG TAB PO SCH (21:28)
[2024-02-22] MEDS: SENNOSIDES-DOCUSATE SODIUM 1 EACH TAB PO SCH (21:28)
[2024-02-23] MEDS: METOCLOPRAMIDE 5 MG/ML 2 ML VIAL IVP PRN (00:41)
[2024-02-23] MEDS: IBUPROFEN IV 800 MG in SODIUM CHLORIDE 0.9% 250 ML IV SCH (00:43)
[2024-02-23 07:23] LABS: Basophils % (A) 0 %; Eosinophils # (A) 0.1 k/uL (0-0.7); Eosinophils % (A) 1 %; HCT 20.6 % (34.0-46.0); Hypochromasia Moderate; Lymphocytes % (A) 24 %; MCH 26.2 pg (25.0-35.0); MCHC 31.6 g/dL (31.0-37.0); MCV 82.9 fL (80.0-100.0); Mean Platelet Volume 9.7; Monocytes # (A) 0.4 k/uL (0-1.0); Monocytes % (A) 4 %; Neutrophils # (A) 5.7 k/uL (1.3-7.7); Neutrophils % (A) 69 %; Platelet Count 153 k/uL (150-450); Poikilocytosis Slight; RBC 2.48 m/uL (3.80-5.40); RDW 15.5 % (11.5-15.5); WBC 8.3 k/uL (3.8-10.6)
[2024-02-23] MEDS: PRENATAL VIT-IRON-FOLIC ACID 1 EACH TABLET PO SCH (07:25)
[2024-02-23 07:44] LABS: HGB 6.5 gm/dL (11.4-16.0)
--- NOTE | 2024-02-23 07:49 | P.PN ---
Progress Note - Text Progress Note Date: 02/23/24 Postop day 1 from under spinal anesthesia with intrathecal morphine given for postop pain management. Patient is doing well. Pain is well controlled. On visual analog scale 3/10 Mild itching present No nausea or vomiting reported. No Headache or weakness and numbness in the legs. No complications from spinal anesthesia.
[2024-02-23] MEDS: FERROUS SULFATE 325 MG TAB PO SCH (08:53)
--- NOTE | 2024-02-23 12:00 | P.PNOBGPC ---
Subjective - Subjective Principal diagnosis: Postop day 1, repeat section Interval history: Patient is doing well overall. She is ambulating and voiding without difficulty. Her pain is well-controlled. Her lochia is minimal. She is bottlefeeding. Patient reports: Reports appetite normal, Reports voiding normally, Reports pain well controlled, Reports ambulating normally : doing well, bottle feeding Objective - Vital Signs Latest vital signs: Vital Signs Temp Pulse Resp BP Pulse Ox 02/23/24 07:30 98.4 F 91 16 107/61 96 02/23/24 07:15 98.5 F 75 16 120/76 98 02/23/24 04:00 98.0 F 70 16 118/76 97 02/23/24 00:00 98.1 F 78 16 122/78 97 02/22/24 20:00 97.9 F 69 16 118/75 100 02/22/24 16:00 98.1 F 77 16 118/77 100 02/22/24 15:45 68 16 110/69 100 02/22/24 15:30 71 16 113/69 100 02/22/24 15:14 76 16 135/77 100 02/22/24 14:53 68 16 120/77 100 02/22/24 14:40 75 16 114/74 100 02/22/24 14:25 76 16 120/65 100 02/22/24 14:10 75 16 133/65 100 02/22/24 13:55 77 16 116/74 100 02/22/24 13:40 88 15 98/65 100 02/22/24 13:25 100 16 95/63 96 02/22/24 13:10 111 H 16 108/59 100 02/22/24 12:55 96.6 F L 107 H 16 113/64 100 Intake and Output 02/22/24 02/23/24 02/23/24 22:59 06:59 14:59 Output Total 289 1600 850 Balance -289 -1600 -850 Output: Urine 100 1600 850 Uretheral (Sharma) 800 Output, Quantitative 189 Blood Loss Other: Voiding Method Indwelling Catheter # Voids 1 - Exam Extremities: Present: normal, edema Abdomen: Present: normal appearance, soft Incision: Present: normal, dry, intact Uterus: Present: normal, firm - Labs Labs: Abnormal Lab Results - Last 24 Hours (Table) 02/23/24 Range/Units 06:53 RBC 2.48 L (3.80-5.40) m/uL Hgb 6.5 L* D (11.4-16.0) gm/dL Hct 20.6 L (34.0-46.0) % Assessment and Plan (1) 37 weeks gestation of Current Visit: Yes Status: Acute Code(s): Z3A.37 - 37 WEEKS GESTATION OF SNOMED Code(s): 73444377 (2) History of section Current Visit: Yes Status: Acute Code(s): Z98.891 - HISTORY OF UTERINE SCAR FROM PREVIOUS SURGERY SNOMED Code(s): 249740083 (3) IUGR (intrauterine growth restriction) Current Visit: No Status: Acute Code(s): VKQ4417 - SNOMED Code(s): 51267692 (4) Acute blood loss anemia Current Visit: Yes Status: Acute Code(s): D62 - ACUTE POSTHEMORRHAGIC ANEMIA SNOMED Code(s): 447749984 (5) Status post section Current Visit: No Status: Acute Code(s): Z98.891 - HISTORY OF UTERINE SCAR FROM PREVIOUS SURGERY SNOMED Code(s): 598685807 Plan: Patient is doing well postoperatively. Hemoglobin did drop from 10-6.4. Patient has begun on oral iron twice daily. Patient is counseled on need for iron secondary to anemia. Will continue routine postoperative care and anticipate discharge home tomorrow.
[2024-02-24 07:41] LABS: Anisocytosis Slight; Basophils % (A) 0 %; Eosinophils # (A) 0.1 k/uL (0-0.7); Eosinophils % (A) 1 %; HCT 22.3 % (34.0-46.0); Hypochromasia Slight; Lymphocytes # (A) 1.9 k/uL (1.0-4.8); Lymphocytes % (A) 19 %; MCH 26.1 pg (25.0-35.0); MCHC 31.6 g/dL (31.0-37.0); MCV 82.6 fL (80.0-100.0); Mean Platelet Volume 8.6; Monocytes # (A) 0.5 k/uL (0-1.0); Monocytes % (A) 5 %; Neutrophils # (A) 7.3 k/uL (1.3-7.7); Neutrophils % (A) 73 %; Platelet Count 202 k/uL (150-450)
--- NOTE | 2024-02-24 11:24 | P.PNOBGPC ---
Subjective - Subjective Principal diagnosis: Status post repeat low transverse postop day 2 Interval history: Patient seen and examined. Denies nausea, vomiting, chest pain, shortness of breath or calf pain. Patient reports: Reports appetite normal, Reports voiding normally, Reports pain well controlled, Reports ambulating normally [place]: doing well Objective - Vital Signs Latest vital signs: Vital Signs Temp Pulse Resp BP Pulse Ox 02/24/24 08:00 97.9 F 81 16 152/89 02/24/24 00:00 81 16 123/67 97 02/23/24 16:25 97.9 F 72 16 136/83 99 Intake and Output 02/23/24 02/24/24 02/24/24 22:59 06:59 14:59 Other: # Voids 1 1 2 - Exam Lungs: bilateral: normal Chest: Normal S1, Normal S2 Extremities: Present: normal Abdomen: Present: normal appearance, soft. Absent: distention, tenderness Incision: Present: normal, dry, intact Uterus: Present: normal, firm - Labs Labs: Abnormal Lab Results - Last 24 Hours (Table) 02/24/24 Range/Units 07:15 RBC 2.70 L (3.80-5.40) m/uL Hgb 7.0 L (11.4-16.0) gm/dL Hct 22.3 L (34.0-46.0) % RDW 16.0 H (11.5-15.5) % Assessment and Plan (1) Status post repeat low transverse section Current Visit: Yes Status: Acute Code(s): Z98.891 - HISTORY OF UTERINE SCAR FROM PREVIOUS SURGERY SNOMED Code(s): 649923314 Plan: 1. Increase ambulation 2. Continue postoperative care
[2024-02-24 18:05] LABS: Anisocytosis Slight; Basophils % (A) 0 %; Eosinophils # (A) 0.1 k/uL (0-0.7); Eosinophils % (A) 1 %; HCT 24.7 % (34.0-46.0); HGB 7.8 gm/dL (11.4-16.0); Hypochromasia Moderate; Lymphocytes # (A) 2.4 k/uL (1.0-4.8); Lymphocytes % (A) 19 %; MCH 26.6 pg (25.0-35.0); MCHC 31.7 g/dL (31.0-37.0); Mean Platelet Volume 8.3; Monocytes # (A) 0.6 k/uL (0-1.0); Monocytes % (A) 5 %; Neutrophils # (A) 9.4 k/uL (1.3-7.7); Neutrophils % (A) 74 %; Platelet Count 237 k/uL (150-450); RBC 2.94 m/uL (3.80-5.40); RDW 16.2 % (11.5-15.5); WBC 12.7 k/uL (3.8-10.6)
[2024-02-24 18:25] LABS: ALT 14 U/L (4-34); AST 34 U/L (14-36); African American GFR (CKD) >90 (>60 ml/min/1.73 sqM); Blood Urea Nitrogen 9 mg/dL (7-17); LDH 354 U/L (120-246); Non-African American GFR(CKD) >90 (>60 ml/min/1.73 sqM); Uric Acid 5.6 mg/dL (3.7-7.4)
[2024-02-24 19:00] LABS: Appearance,Urine Clear (Clear); Bilirubin,Urine Negative (Negative); Blood,Urine Moderate (Negative); Color,Urine Yellow; Glucose,Urine (UA) Negative (Negative); Ketones,Urine Negative (Negative); Leukocyte Esterase,Urine Negative (Negative); Mucus,Urine Occasional /hpf; Nitrite,Urine Negative (Negative); PH, Urine 7.5 (5.0-8.0); Protein,Urine 2+ (Negative); RBC,Urine 34 /hpf (0-5); Specific Gravity,Urine 1.027 (1.001-1.035); Squamous Epithelial Cell,Urine 3 /hpf (0-4); Urobilinogen,Urine <2.0 mg/dL (<2.0); WBC,Urine 3 /hpf (0-5)
[2024-02-24 20:39] VITALS: RESP 16
--- NOTE | 2024-02-25 10:58 | P.PNOBGPC ---
Subjective - Subjective Principal diagnosis: S/P RLTCS POD #3 Interval history: PT seen and examined. Her BPs have been increasing. pre-e labs wnl. Pt states after her last delivery she had a UTI and her BP went up then. UA C&S run but no signs of infection. denies S/S pre-e. Patient reports: Reports appetite normal, Reports voiding normally, Reports pain well controlled, Reports ambulating normally : doing well Objective - Vital Signs Latest vital signs: Vital Signs Temp Pulse Resp BP Pulse Ox 02/25/24 08:00 98.7 F 98 16 148/87 99 02/25/24 00:00 98.3 F 111 H 16 126/74 02/24/24 20:04 98.5 F 83 16 145/88 02/24/24 18:33 98.6 F 83 14 147/83 02/24/24 15:56 99.0 F 81 14 148/91 Intake and Output 02/24/24 02/25/24 02/25/24 22:59 06:59 14:59 Other: # Voids 2 1 - Exam Lungs: bilateral: normal Chest: Normal S1, Normal S2 Extremities: Present: normal Abdomen: Present: normal appearance, soft. Absent: distention, tenderness Incision: Present: normal, dry, intact Uterus: Present: normal, firm - Labs Labs: Abnormal Lab Results - Last 24 Hours (Table) 02/24/24 02/24/24 02/24/24 Range/Units 17:11 17:11 18:45 WBC 12.7 H (3.8-10.6) k/uL RBC 2.94 L (3.80-5.40) m/uL Hgb 7.8 L (11.4-16.0) gm/dL Hct 24.7 L (34.0-46.0) % RDW 16.2 H (11.5-15.5) % Neutrophils # 9.4 H (1.3-7.7) k/uL Lactate Dehydrogenase 354 H (120-246) U/L Urine Protein 2+ H (Negative) Urine Blood Moderate H (Negative) Urine RBC 34 H (0-5) /hpf Urine Mucus Occasional H (None) /hpf Assessment and Plan (1) Status post repeat low transverse section Current Visit: Yes Status: Acute Code(s): Z98.891 - HISTORY OF UTERINE SCAR FROM PREVIOUS SURGERY SNOMED Code(s): 182513802 Plan: 1. cont po care 2. monitor BPs
[2024-02-25 15:41] VITALS: TEMP 98.6
[2024-02-26 08:06] VITALS: BP 138/72; PULSE 78
--- NOTE | 2024-02-26 08:43 | P.DS ---
Providers Date of admission: 02/22/24 10:03 Expected date of discharge: 02/26/24 Attending physician: Oksana Maria Primary care physician: Stated None - Discharge Diagnosis(es) (1) 37 weeks gestation of Current Visit: Yes Status: Acute (2) History of section Current Visit: Yes Status: Acute (3) IUGR (intrauterine growth restriction) Current Visit: No Status: Acute (4) Acute blood loss anemia Current Visit: Yes Status: Acute (5) Status post section Current Visit: No Status: Acute Hospital Course: 23-year-old 3 now para 2-0-1-2 that presented at 37-1/7 weeks for repeat section secondary to intrauterine growth restriction. Patient had a prior section for marginal placenta previa. Patient had an ultrasound this week revealing less than the 1st percentile for estimated weight. testing has been reassuring. Patient was counseled on recommendations for delivery at 37 weeks given diagnosis of IUGR. Patient agreed with the plan and wished to proceed. Patient was taken back to the operating suite where repeat section was performed without difficulty. A very thin lower uterine segment was appreciated. Viable female infant delivered at 1223, weight of 4 pounds 9 ounces. For full details on the please see the dictated operative report. Patient's postoperative course has been essentially uncomplicated. Patient did have a few elevated blood pressures 130s over 90s. Patient feels well and preeclampsia labs were negative. Patient is ambulating and voiding without difficulty. She is tolerating a regular diet without nausea or vomiting. States her pain is well-controlled. She would like discharge home later today. Patient Condition at Discharge: Good Plan - Discharge Summary New Discharge Prescriptions: No Action Vit No.179/Iron/Folic [ Tablet] 1 tab PO DAILY Discharge Medication List Vit No.179/Iron/Folic [ Tablet] 1 tab PO DAILY 02/22/24 [History] Follow up Appointment(s)/Referral(s): Brayan Abel MD [STAFF PHYSICIAN] - 04/04/24 1:45 pm (Post C/S Appointment 03-07-2024 at 2:15pm) Patient Instructions/Handouts: (DC), (GEN) Activity/Diet/Wound Care/Special Instructions: No intercourse, tub baths. No heavy lifting greater than a gallon of milk. No driving for two weeks. Call with any fever, shakes or chills, with any pain not alleviated by over the counter meds, or with any questions or concerns. [id number] ibuprofen 600 mg or 3 tablets every 6 hours as needed for pain. Plan follow-up in 1 week for blood pressure check Discharge Disposition: HOME SELF-CARE
== END 2024-02-26 11:00 | disposition home or self-care (01) | DRG 787 ==
LOC: 4FBP 10:03
PROVIDERS: ADMIT Obstetrics & Gynecology; ATTEND Obstetrics & Gynecology Obstetrics
PROC: 10D00Z1 Extraction of Products of Conception, Low, Open Approach (ICD-10-PCS; principal; 2024-02-22 12:00)
DX: O36.5930 Maternal care for other known or suspected poor fetal growth, third trimester, not applicable or unspecified (principal); D62 Acute posthemorrhagic anemia; O34.211 Maternal care for low transverse scar from previous cesarean delivery; O99.02 Anemia complicating childbirth; O99.334 Smoking (tobacco) complicating childbirth; F17.200 Nicotine dependence, unspecified, uncomplicated; R03.0 Elevated blood-pressure reading, without diagnosis of hypertension; Z37.0 Single live birth; Z3A.37 37 weeks gestation of pregnancy
CPT/HCPCS: 81001; 82565; 83615; 84450; 84460; 84520; 84550; 85025; 86850; 86900; 86901; 87086